=== PATIENT | male | born 1995 | race Caucasian/White ===

== ENCOUNTER 2021-08-22 14:56 | Outpatient (RCR) | payer OTHER, SELFPAY ==
[2021-08-22 15:06] VITALS: BMI 18.4
[2021-08-22 15:08] VITALS: BMI 18.4
== END 2021-11-11 12:03 | disposition home or self-care (01) ==
LOC: ANHDMC 14:56
PROVIDERS: PCP Family Medicine; Visit Provider Family Medicine
DX: R63.6 Underweight (principal); Z71.3 Dietary counseling and surveillance
CPT/HCPCS: 97802

== ENCOUNTER 2023-03-20 13:04 | Emergency (ER) | payer OTHER, SELFPAY ==
[2023-03-20 13:16] VITALS: BP 118/79; PULSE 97; RESP 16; TEMP 36.9; O2SAT 97
--- NOTE | 2023-03-20 13:38 | ED.ALLEREA ---
HPI - Allergic Reaction General Chief complaint: Skin/Abscess/Foreign Body Stated complaint: Allergic Reaction Time Seen by Provider: 03/20/23 14:05 Source: patient and RN notes reviewed Mode of arrival: ambulatory Limitations: no limitations History of Present Illness HPI narrative: 37-year-old male presents concern for allergic reaction. He reports yesterday he began having a rash on his wrist it is then spread to his arms, legs, chest, torso. Reports it is very itchy. He denies swollen lips, swollen tongue, trouble breathing, he is not sure what he was exposed to, he said he works at a [employer] so he is exposed to lot of different things. He denies any new medications, personal care products. Reports he took Benadryl with little relief complaint: allergic reaction Related Data Allergies Allergy/AdvReac Type Severity Reaction Status Date / Time No Known Allergies Allergy Mild Verified 03/20/23 13:14 Review of Systems Review of Systems: CONSTITUTIONAL: Denies malaise, chills, sweats, or fever. EYES: Denies redness, or discharge. ENT: Denies rhinorrhea, congestion, swollen lips, swollen tongue CARDIOVASCULAR: Denies chest pain, palpitations, or edema. RESPIRATORY: Denies cough or dyspnea. GASTROINTESTINAL: Denies abdominal pain, nausea, vomiting SKIN: Reports generalized itchy rash MUSCULOSKELETAL: Denies joint pain or myalgia. NEUROLOGIC: Denies headache. All systems reviewed & are unremarkable except as noted in HPI and below PMFSH Family History Family History (Updated 06/15/14 @ 07:13 by DOCTOR UNKNOWN) Father Hypertension Social History Social History Smoking status: Never smoker Alcohol intake: current Spiritual care concerns: No Comments At time of signature, agree with nursing past medical, surgical, social and family history. There is no relevant family history pertinent to the presenting complaint Exam Narrative: GENERAL: Well-appearing, well-nourished, and in no acute distress. HEAD: Normocephalic, atraumatic. EYES: PERRLA, conjunctivae clear, and EOMI. ENT: Mucous membranes moist. Oropharynx without edema, erythema or lesions. NECK: Supple. No lymphadenopathy CHEST: Clear to auscultation. No respiratory distress. HEART: Regular rate and rhythm. SKIN: Warm, dry. Maculopapular erythematous rash in no specific pattern noted to the abdomen, arms, legs NEURO: Alert and oriented x3. PSYCH: Normal mood and affect Course Course Emergency Course: Patient is aware of diagnosis, understands and agrees to treatment plan. Anticipatory guidance given. Patient agrees to follow-up as directed and is aware of reasons to seek care at the emergency department. Portions of this record may have been created with voice recognition software Level of Care: Express Care Visit Vital Signs Vital signs: Vital Signs Temperature 98.4 F 03/20/23 13:16 Pulse Rate 97 03/20/23 13:16 Respiratory Rate 16 03/20/23 13:16 Blood Pressure 118/79 03/20/23 13:16 Pulse Oximetry 97 03/20/23 13:16 Oxygen Delivery Room Air 03/20/23 13:16 Temperature 98.4 F 03/20/23 13:16 Pulse Rate 97 03/20/23 13:16 Respiratory Rate 16 03/20/23 13:16 Blood Pressure 118/79 03/20/23 13:16 Pulse Oximetry 97 03/20/23 13:16 Oxygen Delivery Room Air 03/20/23 13:16 Reviewed. MDM - Allergic Reaction MDM Narrative Medical decision making narrative: Does not appear at this time to be erythema multiforme, bullous, SJS, TEN; no evidence at this time to suggest RMSF, endocarditis or Lyme disease; patient looks well, nontoxic and is tolerating oral intake; no neurologic signs or symptoms; no headache, photophobia or neck pain; afebrile; appropriate for initial outpatient treatment; discussed the importance of follow-up, patient agrees; question, viral exanthema, contact dermatitis, allergic dermatitis, eczema, urticaria. No soft palate or uvula edema, no tongue, lip edema or ot
[2023-03-20] MEDS: methylPREDNISolone SOD SUCC 125 MG VIAL IM (14:29)
[2023-03-20 14:56] VITALS: BP 100/59; PULSE 83; RESP 16; TEMP 37.1; O2SAT 100
--- NOTE | 2023-03-20 20:31 | PC.NURSE ---
At 1435, approx. 5 min. after receiving SOLU-Medrol injection pt became nauseous, lightheaded and had numbness and tingling in his left arm and face. Vital signs stable. Pt drank a cup of ice water. Symptoms subsided within 10 min. Pt decided to call and have her pick him up.
== END 2023-03-20 14:56 | disposition home or self-care (01) ==
PROVIDERS: Emergency Provider Nurse Practitioner
DX: R21 Rash and other nonspecific skin eruption (principal)
CPT/HCPCS: 96372; 99213; G0463; J2930